=== PATIENT | male | born 1985 | race Two or more races ===

== ENCOUNTER 2016-04-10 04:34 | Emergency (ER) | payer MEDICAID ==
[2016-04-10] MEDS ORDERED: DEXAMETHASONE SOD PHOS 10 MG/1 ML VIAL ONE (05:21)
[2016-04-10] MEDS ORDERED: IBUPROFEN 600 MG TABLET ONE (05:21)
== END 2016-04-10 06:36 | disposition home or self-care (01) ==
LOC: ED 04:34
DX: K12.2 Cellulitis and abscess of mouth (principal); J02.9 Acute pharyngitis, unspecified
CPT/HCPCS: 87880; 99283 ×2; J1100; A9270